=== PATIENT | female | born 1950 | race Caucasian/White ===

== ENCOUNTER 2016-07-29 03:31 | Inpatient (IN) ==
[2016-07-22 12:50] LABS: BASO% 0.3 % (0.0-0.8); EOS% 2.9 % (0.0-10.0); HEMATOCRIT 43.7 % (37.0-47.0); HEMOGLOBIN 14.1 g/dL (12.0-16.0); LYMPH# 2.46 X1000 (1.2-3.4); LYMPH% 35.1 % (20.5-51.1); MANUAL DIFF NEEDED? NO; MCH 28.8 PG (27-31); MCHC 32.3 g/dL (33-37); MCV 89.2 FL (81-99); MONO# 0.71 X1000 (0.11-0.59); MONO% 10.1 % (1.7-9.3); MPV 9.8 FL (7.4-10.4); NEUT% 51.6 % (42.2-75.2); PLT 241 X1000 (130-400); URINE MICRO REVIEW NEEDED? NO; URINE SOURCE CLEAN CATCH
[2016-07-22 12:55] LABS: BILIRUBIN URINE NEGATIVE (NEGATIVE); BLOOD URINE NEGATIVE (NEGATIVE); COLOR YELLOW; GLUCOSE URINE NEGATIVE (NEGATIVE); LEUKOCYTES URINE NEGATIVE (NEGATIVE); NITRITE URINE NEGATIVE (NEGATIVE); PROTEIN URINE NEGATIVE (NEGATIVE); SP GRAVITY URINE 1.018; TURBIDITY URINE CLEAR (CLEAR); UROBILINOGEN URINE NORMAL (NORMAL)
--- NOTE | 2016-07-22 12:56 | EKG Report ---
Test Performed on : 07/22/2016 12:32:43 PM Test Reason : JOINT CAMP Blood Pressure : / mmHG Vent. Rate : 116 BPM Atrial Rate : 116 BPM P-R Int : 134 ms QRS Dur : 084 ms QT Int : 336 ms P-R-T Axes : 069 050 059 degrees QTc Int : 467 ms Sinus tachycardia. with fusion complexes Otherwise normal ECG No previous ECGs available Confirmed by Cherise ADORNO, Franklin Benjamin ([id number]) on 07/23/2016 6:25:47 PM
[2016-07-22 12:57] LABS: UR EPITHELIAL CELLS <10 /HPF (<10); URINE BACTERIA NEGATIVE /HPF; URINE RBC <10 /HPF (<10); URINE WBC <10 /HPF (<10)
[2016-07-22 13:00] LABS: INR 0.95; PROTIME 9.9 Seconds (9.2-11.7); PTT 24.2 Seconds (22.0-36.0)
[2016-07-22 14:19] LABS: AGAP 15; BUN 16 mg/dL (8-22); CALCIUM 10.2 mg/dL (8.8-10.2); CHLORIDE 101 mmol/L (98-107); COSMO 285; POTASSIUM 3.9 mmol/L (3.5-5.1); SODIUM 141 mmol/L (136-145); TCO2 25 mmol/L (25-35)
[2016-07-29] MEDS ORDERED: COLACE ONE (05:33)
[2016-07-29] MEDS ORDERED: REGLAN ONE (05:34)
[2016-07-29] MEDS ORDERED: LYRICA ONE (05:34)
[2016-07-29] MEDS ORDERED: CELEBREX ONE (05:34)
[2016-07-29] MEDS ORDERED: LR 1,000 ML ONE ×2 (05:34→09:25)
[2016-07-29] MEDS ORDERED: PEPCID ONE (05:34)
[2016-07-29] MEDS ORDERED: KEFZOL 2 GM/D5W 2 GM/50 ML IVPB ONE (05:35)
[2016-07-29] MEDS ORDERED: TORADOL ONE (06:29)
[2016-07-29] MEDS ORDERED: NEOSPORIN G.U. IRRIGANT ONE (06:30)
[2016-07-29] MEDS ORDERED: CLAVE SECONDARY SET 11953 ONE ×2 (06:30→09:25)
[2016-07-29] MEDS ORDERED: DURAMORPH ONE (06:30)
[2016-07-29] MEDS ORDERED: VANCOMYCIN ONE (06:30)
[2016-07-29] MEDS ORDERED: MARCAINE 0.25% PF/EPI 1:200,000 ONE (06:30)
[2016-07-29] MEDS ORDERED: CYKLOKAPRON 1,000 MG/NS 1,000 MG/100 ML IVPB ONE ×2 (06:30→06:31)
[2016-07-29] MEDS ORDERED: EXPAREL 1.3% ONE (06:30)
[2016-07-29] MEDS ORDERED: SODIUM CHLORIDE 0.9% ONE (06:30)
[2016-07-29 08:02] LABS: URINE MICRO REVIEW NEEDED? NO; URINE SOURCE CATH
[2016-07-29 08:33] LABS: BILIRUBIN URINE NEGATIVE (NEGATIVE); BLOOD URINE NEGATIVE (NEGATIVE); COLOR YELLOW; GLUCOSE URINE NEGATIVE (NEGATIVE); LEUKOCYTES URINE NEGATIVE (NEGATIVE); NITRITE URINE NEGATIVE (NEGATIVE); PH URINE 6.5; PROTEIN URINE TRACE mg/dL (NEGATIVE); SP GRAVITY URINE 1.028; TURBIDITY URINE CLEAR (CLEAR); UROBILINOGEN URINE NORMAL (NORMAL)
[2016-07-29 08:34] LABS: UR EPITHELIAL CELLS <10 /HPF (<10); URINE BACTERIA NEGATIVE /HPF; URINE RBC <10 /HPF (<10); URINE WBC <10 /HPF (<10)
[2016-07-29] MEDS ORDERED: HYDROCHLOROTHIAZIDE PO SCH (09:00)
[2016-07-29] MEDS ORDERED: VALSARTAN PO SCH (09:00)
[2016-07-29] MEDS ORDERED: [UNRECOGNIZED DRUG - OTHER] PO SCH (09:00)
[2016-07-29] MEDS ORDERED: DECADRON ONE (09:25)
[2016-07-29] MEDS ORDERED: PIGGYBACK SET 7393 ONE (09:25)
[2016-07-29] MEDS ORDERED: OFIRMEV 1000 MG/ISOTONIC SOLN 1,000 MG/100 ML BOTTLE ONE (09:25)
[2016-07-29] MEDS ORDERED: NEO-SYNEPHRINE ONE (09:25)
[2016-07-29] MEDS ORDERED: ZOFRAN ONE (09:25)
[2016-07-29] MEDS ORDERED: EPHEDRINE ONE (09:25)
[2016-07-29] MEDS ORDERED: NS 1,000 ML ONE (09:27)
[2016-07-29] MEDS ORDERED: MORPHINE ONE (09:42)
--- NOTE | 2016-07-29 10:14 | Diag Imaging Result Document ---
PROCEDURE NAME: KNEE 1-2 VIEWS-RIGHT - 07/29/2016 PORTABLE RIGHT KNEE, THREE VIEWS: FINDINGS: There has been recent orthopedic replacement of the right knee. Good alignment of the femorotibial components. There are anterior skin stephanie and there is a surgical drain. No fracture. No dislocation. IMPRESSION: Good alignment following orthopedic replacement of the right knee.
[2016-07-29] MEDS ORDERED: ZOFRAN PO PRN (11:00)
[2016-07-29] MEDS ORDERED: MILK OF MAGNESIA PO PRN (11:00)
[2016-07-29] MEDS: MORPHINE IV PRN (11:11)
[2016-07-29] MEDS: OXY IR PO PRN ×4 (12:30→22:11)
--- NOTE | 2016-07-29 12:34 | OPERATIVE NOTE ---
PROCEDURE DATE: 07/29/2016 PREOPERATIVE DIAGNOSIS: Degenerative osteoarthritis of the right knee with significant valgus deformity. POSTOPERATIVE DIAGNOSIS: Degenerative osteoarthritis of the right knee with significant valgus deformity. PROCEDURE: Right total knee arthroplasty with DePuy Sigma size 3 femur with a 40 mm universal femoral stem and a 75 x 16 mm universal fluted stem, and a size 3 tibial tray with a 45 mm metaphyseal sleeve and a 75 x 12 universal fluted stem, a 15 mm rotating platform tibial insert, and then a 32 mm round dome patella. SURGEON: Marcelino Rivera MD AGRONOMY PROFESSOR: VANESA Gould [employer] ASSEMBLER: CASIMIRO Moralez ANESTHESIA: Spinal. IV FLUIDS: 1700 mL lactated Ringer's. ESTIMATED BLOOD LOSS: 30 mL. TOURNIQUET TIME: 90 minutes at 350 mmHg. COMPLICATIONS: None. INDICATION: The patient is a 66-year-old female with chronic history of worsening pain and discomfort of her right knee. Patient had significant valgus deformity and x- rays reveal significant severe valgus deformity with degenerative osteoarthritis. Recommendation to proceed with right total knee arthroplasty was offered. Risks and benefits of surgery explained, including risks of anesthesia, , bleeding, infection, failure to relieve pain, postoperative stiffness, nerve injury, blood clots, and other imponderables. All questions answered, patient and family wished to proceed with surgery. DESCRIPTION OF PROCEDURE: The patient was taken to the operating room and placed supine on the operating table. Once adequate anesthesia was obtained, the patient's right lower extremity was subsequently prepped and draped in the usual sterile fashion. A standard anterior incision made with a skin knife. Medial and lateral skin envelopes were developed. Standard medial parapatellar arthrotomy was then performed. The patella fat pad was excised. Retractors were then placed. Attention was then turned to the distal femur. The intramedullary guide was then placed in position. This was followed by sequential reaming up to a size 16. The distal femoral cutting block was pinned in position. Distal femoral cut was then performed. After this had been performed, attention was then turned to the proximal tibia, where the proximal tibia had severe wear on the lateral compartment and the proximal tibia was resected with a freehand cut. After this had been performed, the central intramedullary reamer was passed sequentially up to a size 12. Sequential broaching was then performed with metaphyseal trial sleeve up to 40 mm. The femoral cutting block was pinned in position and the knee was flexed and was gap balanced within the 90 degree flexed position. Anterior, posterior, and chamfer cuts were then made. The box cutting guide was then placed in position. The box cut was then performed. Trial broach was removed. The trial femoral component with 40 mm metaphysis sleeve and stem was then placed and had good fit. The trial tibial insert was placed and had good soft tissue balancing. The patella was everted and resected in standard fashion. The 32 appeared to be correct size. Holes were drilled and the trial components placed. Patient did have some lateral translation and a lateral release was performed. There appeared to be good soft tissue balancing, good range of motion. After this had been performed, the trial components were removed. The constructs were then assembled on the back table while vancomycin was mixed with cement on back table. Copious irrigation performed with antibiotic pulsatile lavage. A size 3 tibial tray with a 45 metaphyseal sleeve and a 75 x 12 universal fluted stem was impacted in position with cement placed on the superior aspect of the tibia. Excess cement was removed with a [place]. The femoral construct with a size 3 femur, a 45 metaphyseal sleeve and a 75 x 16 mm universal fluted stem was then impacted in position and cement was placed in standard fashion as well. The excess cement was removed after the implant had impacted. The trial tibial insert was then placed and had full extension and axial loading was maintained while cement hardened. The patella cemented in standard fashion. Patella clamp was placed. Exparel was placed in the deep soft tissue as well as subcutaneous tissue. After cement cured, the 15 mm rotating platform tibial insert appeared to be correct size. This was then removed. Copious irrigation was then performed with antibiotic pulsatile lavage. Exparel was placed in the deep posterior capsule, this was followed by copious irrigation with antibiotic pulsatile lavage. A size 15 mm rotating platform tibial insert was then placed and had good soft tissue balance, good patellofemoral tracking, and good range of motion. A 1/8th Hemovac drain was placed and was not sewn in. Copious irrigation performed once again with antibiotic pulsatile lavage, this followed by #1 Vicryl the arthrotomy followed by 2-0 Vicryl for the subcutaneous tissue and skin stephanie. Sterile 4x4s, Webril, cryo unit, Edvin wrap applied to the right lower extremity. Patient tolerated the procedure well, no complications. She was transferred to the recovery room in stable condition. cc: MD PABLO Albright
[2016-07-29] MEDS: CELEBREX PO SCH (13:17)
[2016-07-29] MEDS: SYNTHROID PO SCH (13:18)
[2016-07-29] MEDS ORDERED: FENTANYL ONE (14:04)
[2016-07-29] MEDS ORDERED: DIPRIVAN 1% ONE ×2 (14:04→14:11)
[2016-07-29] MEDS ORDERED: VERSED ONE (14:08)
[2016-07-29] MEDS: CULTURELLE PO SCH (15:38)
[2016-07-29] MEDS: HYDROCHLOROTHIAZIDE PO SCH (15:39)
[2016-07-29] MEDS: DIOVAN PO SCH (15:40)
[2016-07-29] MEDS: THERA M PLUS PO SCH (15:40)
[2016-07-29] MEDS: PERICOLACE PO SCH (15:41)
[2016-07-29] MEDS: LASIX PO SCH (15:42)
[2016-07-29] MEDS: TYLENOL PO SCH ×2 (15:55→20:11)
[2016-07-29] MEDS: KEFZOL 2 GM/D5W 2 GM/50 ML IVPB IV SCH ×2 (15:57→22:47)
[2016-07-29] MEDS: PERIDEX MT SCH (20:09)
[2016-07-29] MEDS: NS 1,000 ML IV SCH (20:10)
[2016-07-29] MEDS: COLACE PO SCH (20:10)
[2016-07-29] MEDS ORDERED: PRAVACHOL PO SCH (21:00)
[2016-07-29] MEDS ORDERED: ELAVIL PO SCH (21:00)
[2016-07-29] MEDS ORDERED: SULAR PO SCH (21:00)
[2016-07-30] MEDS: NS 1,000 ML IV SCH ×2 (00:40→00:41)
[2016-07-30] MEDS: MORPHINE IV PRN (02:15)
[2016-07-30] MEDS ORDERED: XARELTO PO SCH (06:00)
[2016-07-30 06:18] LABS: HEMOGLOBIN 10.9 g/dL (12.0-16.0)
[2016-07-30] MEDS: OXY IR PO PRN ×2 (06:31→09:18)
[2016-07-30] MEDS: SYNTHROID PO SCH (06:31)
[2016-07-30 06:36] LABS: AGAP 11; BUN 17 mg/dL (8-22); CALCIUM 8.4 mg/dL (8.8-10.2); CHLORIDE 102 mmol/L (98-107); COSMO 280; POTASSIUM 4.3 mmol/L (3.5-5.1); SODIUM 139 mmol/L (136-145); TCO2 26 mmol/L (25-35)
[2016-07-30] MEDS: LASIX PO SCH (06:36)
[2016-07-30] MEDS: TYLENOL PO SCH ×2 (07:39→09:19)
[2016-07-30] MEDS ORDERED: PEPCID PO SCH (09:00)
[2016-07-30] MEDS ORDERED: DECADRON IV ONE (09:00)
--- NOTE | 2016-07-30 09:08 | PROGRESS NOTE ---
DATE: 07/30/2016 SUBJECTIVE: The patient is a pleasant 66-year-old female, who is 1 day status post right total knee arthroplasty. Patient is currently resting comfortably and has no complaints this morning. OBJECTIVE: On physical exam, patient's right lower extremity dressing is intact. Her calf is soft. She has active dorsiflexion, plantar flexion. LABS: Her hemoglobin is 10.9 and hematocrit 35.0 IMPRESSION: Postoperative day #1 status post right total knee arthroplasty. PLAN: At this point, we will change her dressing and discontinue her drain, as well as her Connor. We will also Hep-Lock her IV. We will mobilize physical therapy and plan on discharging home later today if she progresses well. Patient will receive home physical therapy. cc: Marcelino Rivera MD
[2016-07-30] MEDS: DIOVAN PO SCH (09:18)
[2016-07-30] MEDS: CELEBREX PO SCH (09:18)
[2016-07-30] MEDS: COLACE PO SCH (09:20)
[2016-07-30] MEDS: THERA M PLUS PO SCH (09:20)
[2016-07-30] MEDS: PERICOLACE PO SCH (09:20)
[2016-07-30] MEDS: HYDROCHLOROTHIAZIDE PO SCH (09:21)
[2016-07-30] MEDS: CULTURELLE PO SCH (09:23)
[2016-07-30] MEDS: PERIDEX MT SCH (09:24)
[2016-07-30 11:53] VITALS: BP 100/59
== END 2016-07-30 14:46 | disposition home health service (06) ==
LOC: SURHOLD 03:31 → 4N 09:11
PROVIDERS: ADMIT Orthopaedic Surgery Adult Reconstructive Orthopaedic Surgery; ATTEND Orthopaedic Surgery Adult Reconstructive Orthopaedic Surgery